=== PATIENT | male | born 1980 | race American Indian/Alaskan Native ===

== ENCOUNTER 2019-11-14 06:39 | Day surgery (SDC) | payer BC ==
[~2019-11-14 06:39] MED LIST: ceFAZolin/Water 2 GM/20 ML 2 GM/20 ML SYRINGE IV NR
[2019-11-14] MEDS ORDERED: ONDANSETRON 4 MG/2 ML INJ IV PRN (07:53)
[2019-11-14] MEDS ORDERED: fentaNYL 100 MCG/2 ML INJ IV PRN (07:53)
[2019-11-14] MEDS ORDERED: MAGNESIUM OXIDE 400 MG TAB PO NR (07:53)
[2019-11-14] MEDS ORDERED: ACETAMINOPHEN 500 MG TAB PO NR (07:53)
--- NOTE | 2019-11-14 07:54 | Anesthesia Day of Surgery ---
Anesthesia Day of Surgery - Day of Surgery Patient Examined: Yes Patient H&P Reviewed: Yes Patient is NPO: Yes
--- NOTE | 2019-11-14 07:57 | Anesthesia Consultation ---
Anesthesia Consult and Med Hx Date of service: 11/14/19 - Airway Anesthetic Teeth Evaluation: Good ROM Head & Neck: Adequate Mental/Hyoid Distance: Adequate Mallampati Class: Class II Intubation Access Assessment: Good - Pre-Operative Health Status ASA Pre-Surgery Classification: ASA3 Proposed Anesthetic Plan: General - Pulmonary Hx Smoking: No Hx Asthma: No COPD: No Hx Pneumonia: No Hx Sleep Apnea: Yes (DX SLEEP APNEA- IRREGULAR CPAP USE.) - Cardiovascular System Hx Hypertension: Yes (States he can climb two flights of stairs) - Central Nervous System Hx Psychiatric Problems: No - Gastrointestinal Hx Gastroesophageal Reflux Disease: Yes (Dietary; none recently) - Endocrine Hx Non-Insulin Dependent Diabetes: Yes - Hematic Hx Anemia: No Hx Sickle Cell Disease: No - Other Systems Hx Alcohol Use: Yes (OCC.) Hx Substance Use: No Hx Cancer: No Hx Obesity: Yes
[2019-11-14] MEDS ORDERED: LACTATED RINGERS 1,000 ML IV SCH (08:00)
[2019-11-14] MEDS ORDERED: MIDAZOLAM 2 MG/2 ML INJ IV NR (08:00)
[2019-11-14] MEDS ORDERED: LIDOCAINE MPF (2%) 20 MG/1 ML VIAL 5 ML ONE (09:15)
[2019-11-14] MEDS ORDERED: fentaNYL 100 MCG/2 ML INJ ONE (09:15)
[2019-11-14] MEDS ORDERED: MIDAZOLAM 2 MG/2 ML INJ ONE (09:15)
[2019-11-14] MEDS ORDERED: propofoL 200 MG/20 ML VIAL IV ONE (09:15)
[2019-11-14] MEDS ORDERED: ONDANSETRON 4 MG/2 ML INJ ONE (10:36)
[2019-11-14] MEDS ORDERED: KETOROLAC 30 MG/1 ML INJ ONE (10:36)
[2019-11-14] MEDS ORDERED: dexAMETHasone 20 MG/5 ML VIAL ONE (10:36)
[2019-11-14] MEDS ORDERED: SODIUM CHLORIDE 0.9% IRR 1,500 ML BOTTLE IR ONE (10:41)
--- NOTE | 2019-11-14 11:13 | Short Stay Summary ---
Short Stay Documentation Date of service: 11/14/19 Narrative H&P: 38 yr old with phimosis & diabetes present - History Past Medical History: diabetes Past Surgical History: No surgical history Social history: - Allergies and Medications Current Medications: Allergies shellfish derived Adverse Reaction (Severe, Verified 11/02/19 13:52) Swelling Home Medications Medication Instructions Recorded Confirmed Last Taken Type Atorvastatin 40 mg PO DAILY 11/02/19 11/14/19 11/13/19 09:00 History Complete Multi Tablet 1 tab PO DAILY 11/02/19 11/14/19 11/13/19 09:00 History Insulin Aspart (Nf) [NovoLOG 70 units SUB-Q PRN 11/02/19 11/14/19 11/13/19 21:00 History Flexpen] Insulin Degludec (Nf) [Tresiba 60 unit SUB-Q DAILY 11/02/19 11/14/19 11/13/19 21:00 History Flextouch U-100 (Nf)] Lisinopril/Hydrochlorothiazide 20 mg PO DAILY 11/02/19 11/14/19 11/13/19 09:00 History metFORMIN 1,000 mg PO BID 11/02/19 11/14/19 11/12/19 17:00 History Active Medications Acetaminophen (Tylenol) 1,000 mg PO ONCE NR Stop: 11/14/19 13:00 Last Admin: 11/14/19 08:30 Dose: 1,000 mg Documented by: Fentanyl (Sublimaze) 50 mcg IV Q5MIN PRN PRN Reason: Pain , Severe (7-10) Stop: 11/14/19 22:00 Cefazolin Sodium (Ancef/Sterile Water 2 Gm/20 Ml) 2 gm in 20 mls @ 80 mls/hr IV PREOP NR; Protocol Stop: 11/14/19 16:00 Lactated Ringer's (Lactated Ringers) 1,000 mls @ 125 mls/hr IV DIRECT ELYSSA Last Admin: 11/14/19 09:00 Dose: 125 mls/hr Documented by: Magnesium Oxide (Mag-Ox) 400 mg PO ONCE NR Stop: 11/14/19 13:00 Last Admin: 11/14/19 08:30 Dose: 400 mg Documented by: Midazolam HCl (Versed) 2 mg IV PREOP NR Stop: 11/14/19 23:59 Ondansetron HCl (Zofran) 4 mg IV ONCE PRN PRN Reason: Nausea And Vomiting Stop: 11/14/19 13:00 - Physical exam General appearance: no acute distress, well-nourished Integumentary: no rash, no growths HEENT: Atraumatic, PERRLA, EOMI Lungs: Clear to auscultation Heart: Regular rate, No murmurs Gastrointestinal: normal Male Genitourinary: penile edema Rectal Exam: deferred Extremities: no ischemia, No edema Neurological: Normal gait - Brief post op/procedure progress note Date of procedure: 11/14/19 Pre-op diagnosis: phimosis Post-op diagnosis: same Procedure: phimosis Anesthesia: GETA Surgeon: SYL LOUISE Estimated blood loss: minimal Pathology: list (foreskin) Specimen disposition: to lab Condition: stable - Hospital course Hospital course: [facility] - Disposition Condition at discharge: Stable Disposition: DC-01 TO HOME OR SELFCARE Short Stay Discharge Plan Follow up with: AZAM TERRELL MD [Primary Care Provider] - 7 Days
--- NOTE | 2019-11-14 11:30 | Operative Report ---
PREOPERATIVE DIAGNOSIS: Phimosis. POSTOPERATIVE DIAGNOSIS: Phimosis. PROCEDURE: Circumcision. SURGEON: Kiel Johnson MD ANESTHESIA: General. ESTIMATED BLOOD LOSS: Minimal. FLUIDS: Crystalloid. COMPLICATIONS: No complications. INDICATIONS: This is a 38-year-old gentleman with history of diabetes, seen in the office with his , has a history of phimosis. Exam was consistent with phimosis, cracking was noted. Risks, benefits and complications were explained. The patient agreed to proceed with surgical intervention. He also has a history of increased body mass index. DESCRIPTION OF PROCEDURE: The patient was taken to the operative suite, placed in a supine position. After adequate general anesthesia, placed in a supine position, prepped and draped in a sterile fashion. Foreskin was marked at the level of the coronal ridge. Dorsal and ventral slit was made. Foreskin was circumferentially removed and sent for routine pathologic evaluation. Shaft skin was retracted proximally. Adequate hemostasis was achieved. The proximal and distal shaft skin was reapproximated and closed with 2-0 chromic in interrupted fashion. Xeroform gauze was placed as well as Coban. The patient tolerated the procedure well and was extubated and taken to recovery room. He will go home on Cipro, Ultram and [place]. JOB# [id number] CELESTE/HARLEY
[2019-11-14 12:24] VITALS: BP 122/86
--- NOTE | 2019-11-14 17:06 | Post Anesthesia Evaluation ---
- Post Anesthesia Evaluation Patient Participated: Yes Airway Patent: Yes Stable Respiratory Function: Yes Nausea/Vomiting: No Temp > 96.8F: Yes Pain Manageable: Yes Adequeate Hydration: Yes Anesthesia Complications: No
== END 2019-11-14 13:00 | disposition home or self-care (01) ==
LOC: OR 06:39
PROVIDERS: ATTEND Urology
DX: N47.1 Phimosis (principal); N48.1 Balanitis; Z91.013 Allergy to seafood; Z79.84 Long term (current) use of oral hypoglycemic drugs; E78.00 Pure hypercholesterolemia, unspecified; I10 Essential (primary) hypertension; G47.30 Sleep apnea, unspecified; K21.9 Gastro-esophageal reflux disease without esophagitis; E66.9 Obesity, unspecified; Z68.42 Body mass index [BMI] 45.0-49.9, adult; E11.9 Type 2 diabetes mellitus without complications; Z72.89 Other problems related to lifestyle; Z98.890 Other specified postprocedural states
CPT/HCPCS: 36415; 54161; 82962; 84132; 88304; J0690; J1100; J1885; J2250; J2405; J2704; J3010; J7120